=== PATIENT | female | born 1975 ===

== ENCOUNTER 2024-05-06 15:32 | Emergency (ER) | payer BC ==
--- OUTSIDE RECORDS SUMMARY | 2024-05-06 15:36 | XMS REPORT | Clinical Summary ---
Author Name Unknown Organization [facility] Address [address] [place] [address] Care Team Providers Care Self Sealing Fuel Tank Builder Name Role Phone Patrica Rea MD Unavailable Patrica Rea MD Unavailable China Padilla MD Primary Care Provider [phone] Cate Tipton MD Unavailable Ruba Dias MD Unavailable [phone] Allergies Active Allergy Reactions Criticality Noted Date Comments Hydromorphone (Bulk) Nausea And Vomiting 2016 Hydromorphone-Guaifenesin 09/17/2016 Penicillins Anaphylaxis High 05/01/2016 Medications Medication Sig Dispensed Refills Start Date End Date Status BABY ASPIRIN ORAL Take 81 mg by mouth daily. Active ibuprofen (ADVIL,MOTRIN) 200 mg tablet Take 1 tablet (200 mg) by mouth every 6 (six) hours as needed for moderate pain (pain score 4-6). Reported on 12/06/2016 Active acetaminophen (TYLENOL) 500 mg tablet Take 2 tablets (1,000 mg) by mouth every 6 (six) hours as needed for mild pain (pain score 1-3). Reported on 01/10/2017 Active PARAGARD T 380A 380 square mm IUD intrauterine device 7 Active progesterone (PROMETRIUM) 200 MG capsule Take 1 capsule (200 mg) by mouth at bedtime. 2 Active UNABLE TO FIND Take 1 Dose by mouth daily. Med Name: Beta alanine Active traZODone (DESYREL) 50 mg tablet Take 1 tablet (50 mg) by mouth nightly as needed. 3 Active POTASSIUM ORAL Take 500 mg by mouth daily. Active multivitamin tab tablet Take 1 tablet by mouth daily. Active dexlansoprazole (DEXILANT) 60 mg capsule Take 1 capsule (60 mg) by mouth every morning before breakfast. Active Wegovy 2.4 mg/0.75 mL pnij 3 Active peginterferon elliot-2a (Pegasys) 180 mcg/mL injectionIndication s:Essential hemorrhagic thrombocythemia Inject 0.25 mL (45 mcg) under the skin every 7 days. 4 mL 11 4 Active Vyvanse 20 mg capsule Take 2 capsules (40 mg) by mouth every morning. 4 Active telmisartan (MICARDIS) 80 mg tablet Take 1 tablet (80 mg) by mouth daily. 8 023 Discontinued coenzyme Q10 100 mg capsule Take 200 mg by mouth daily. 024 Discontinued calcium-vitamin D 250-100 mg-unit per tablet Take 1 tablet by mouth daily. 024 Discontinued methylphenidate HCl (Ritalin) 5 mg tabletIndications:O ther fatigue,Essential hemorrhagic thrombocythemia Take 2 tabs (total 10 mg) by mouth three times daily. 180 tablet 0 023 Discontinued magnesium 250 mg tab Take 1,000 mg by mouth daily. 024 Discontinued allopurinol (ZYLOPRIM) 300 mg tabletIndications:H yperuricemia Take 1 tablet (300 mg) by mouth daily. 90 tablet 3 2 023 Discontinued Saxenda 3 mg/0.5 mL (18 mg/3 mL) pnij Inject 0.6 mg under the skin once a week. 2 023 Discontinued nebivolol (BYSTOLIC) 10 mg tablet Take 1 tablet (10 mg) by mouth daily. 2 024 Discontinued pen needle, diabetic (BD Ultra-Fine Short Pen Needle) 31 gauge x 5/16" ndleIndications:Ess ential hemorrhagic thrombocythemia To be used with Pegasys injections every other week. 50 each 1 2 023 Discontinued peginterferon elliot-2a (Pegasys) 180 mcg/mL injectionIndication s:Essential thrombocytosis Inject 0.5 mL (90 mcg) under the skin every 14 (fourteen) days. 2 mL 11 2 024 Discontinued hydrALAZINE (APRESOLINE) 25 mg tablet Take 1 tablet (25 mg) by mouth twice daily. 3 023 Discontinued hydroCHLOROthiazide (HYDRODIURIL) 25 mg tablet Take 1 tablet (25 mg) by mouth every other day. 2 023 Discontinued omeprazole (PriLOSEC) 40 MG capsule Take 1 capsule (40 mg) by mouth daily. 3 023 Discontinued ondansetron (ZOFRAN-ODT) 4 mg disintegrating tablet Dissolve 1 tablet (4 mg) on the tongue every 8 (eight) hours as needed for nausea and vomiting. 3 023 Discontinued cholecalciferol, vitamin D3, (VITAMIN D3) 10,000 units tab tablet Take 400 Units by mouth daily. 024 Discontinued telmisartan-hydroch lorothiazide (MICARDIS HCT) 80-25 mg per tablet Take 1 tablet by mouth daily. 024 Discontinued peginterferon elliot-2a (Pegasys) 180 mcg/mL injectionIndication s:Essential hemorrhagic thrombocythemia Inject 0.5 mL (90 mcg) under the skin every 14 (fourteen) days. 2 mL 11 3 024 Discontinued(Re order) Active Problems Problem Noted Date Diagnosed Date Encounter for antineoplastic chemotherapy 2022 Hypertension 01/22/2023 Hyperuricemia 09/21/2020 Essential thrombocytosis 07/10/2016 Leukocytosis 07/10/2016 Other fatigue 07/10/2016 Encounters Date Type Department Care Team Description 05/01/2024 9:00 AM CDT - 05/01/2024 11:59 PM CDT Hospital Encounter [facility] [address] [place] [address], [place] [address] Juju Valladares APRN Essential hemorrhagic thrombocythemia Discharge Disposition: Home 04/16/2024 Documentation Leukemia Center [address] [facility], 8th [place] [address] Rosibel Dodson RN 04/14/2024 Documentation Breast Imaging [address] [facility], 5th [place] [address] Stu Hernandez RT 04/07/2024 Orders Only Leukemia Center [address] [place] [address], 8th [place] [address] Juju Valladares APRN Essential hemorrhagic thrombocythemia (Primary Dx) 03/30/2024 4:14 PM CDT - 03/30/2024 11:59 PM CDT Hospital Encounter Blood Donor [facility] [address] [place] [address], 2nd [place] [address] China Padilla MD Essential thrombocytosis (Primary Dx) Discharge Disposition: Home 03/30/2024 Travel 03/26/2024 3:00 PM CDT Follow-Up Leukemia Center [address] [place] [address], 8th [place] [address] China Padilla MD Essential hemorrhagic thrombocythemia (Primary Dx); Encounter for antineoplastic chemotherapy; Other fatigue; Essential thrombocytosis; Hypertension 03/26/2024 1:45 PM CDT - 03/26/2024 11:59 PM CDT Hospital Encounter [facility] [address] [place] [address], [place] [address] Diana Estrada APRN Hypertension (Primary Dx); Essential hemorrhagic thrombocythemia; Myalgia, other site; Encounter for antineoplastic chemotherapy; Hyperuricemia; Other fatigue; Essential thrombocytosis Discharge Disposition: Home 03/26/2024 Travel 02/03/2024 Orders Only Leukemia Center [address] [place] [address], 8th [place] [address] Diana Estrada APRN Essential hemorrhagic thrombocythemia (Primary Dx) 01/22/2024 Orders Only Leukemia Center [address] [place] [address] Main [facility], 8th [place] [address] Diana Estrada APRN Myalgia, other site (Primary Dx) 09/20/2023 Orders Only Leukemia Center [address] [place] [address] Main dg, 8th [place] [address] Diana Estrada APRN Essential hemorrhagic thrombocythemia 08/13/2023 9:40 AM CORPORATE OPERATIONS COMPLIANCE MANAGER Follow-Up Leukemia Center [address] [place] [address] Main dg, 8th [place] [address] China Padilla MD Essential hemorrhagic thrombocythemia (Primary Dx); Essential thrombocytosis; Hypertension; Other fatigue; Encounter for antineoplastic chemotherapy; Hyperuricemia 08/13/2023 7:45 AM CORPORATE OPERATIONS COMPLIANCE MANAGER - 08/13/2023 11:59 PM CORPORATE OPERATIONS COMPLIANCE MANAGER Hospital Encounter Diagnostic [facility] [address] [place] [address] Main [facility], [place] [address] Ramin Wright PA Essential hemorrhagic thrombocythemia; Other fatigue Discharge Disposition: Home 08/13/2023 Travel 08/09/2023 Orders Only Leukemia Center [address] [place] [address] Main dg, 8th [place] [address] Diana Estrada APRN Other fatigue (Primary Dx) after 05/07/2023 Surgical History Surgery Date Site/Laterality Comments STOMACH SURGERY February 2015 gastric sleeve CHOLECYSTECTOMY 1998 UPPER GASTROINTESTINAL ENDOSCOPY 2014 APPENDECTOMY INCISION AND DRAINAGE, PELVI S OR HIP JOINT AREA; DEEP ABSCESS OR HEMATOMA HERNIA REPAIR GASTROPLASTY DUODENAL SWITCH AUGMENTATION MAMMAPLASTY W/P ROSTHETIC IMPLANT Both breast Medical History Medical History Date Comments Hypertension 2009 - 2014 duri ng obesity Other heart disorder in dise ases classified elsewhere several TIAs [id number] due t o thrombocythemia Hearing loss 2015 runs on my dad's side of the family Nodule in breast 2014 2 spots r breas t, no change in current mammogram- possible lipoma has had one removed in the past Pneumonia 2011 - 2012 Gallstone 1998 - removed g allbladder Renal stone 1993, 2003, 2013 -current Urinary tract infection current possible bladder infection Presence of intrauterine contraceptive device IUD 2003 - current Immune disease 1998 Essential Thromb ocythemia Osteoporosis is a future conc georgiana Fracture foot Sep 2014 Other (abnormal) findings on radiological examination of breast Curious about liped gavin due to leg shape. Cyst of parathyroid 2014 possible debora or Chronic fatigue syndrome 07/10/2016 Family History Medical History Relation Name Comments Acute myelogenous leukemia Daughter 1 Heaven Bell Hypertension Father Amish Wu Stroke Father Amish Wu stroke 2013 Mesothelioma Maternal Grandfather Raj Sommers Prostate cancer Maternal Grandfather Raj Sommers low grade Skin cancer Maternal Grandmother BCC or SCC Pancreatic cancer Maternal Uncle 1 Zoltan Sommers Prostate cancer Maternal Uncle 1 Zoltan Sommers Lung cancer Maternal Uncle 2 Neftaly Sommers Printing pr ess exposure Diabetes Mother Mulugeta Wu passed 2009 Hypertension Mother Mulugeta Wu Stroke Mother Mulugeta Wu massive stroke 2005, passed 2009 Leukemia Paternal Cousin 2 dx 1969's Leukemia Paternal Grandmother Kathleen Wu Lymphoma Paternal Grandmother Kathleen Wu NHL -Unknown cancer Paternal Uncle Diabetes type I Sister Tereza Ewing Relation Name Status Comments Daughter 1 Heaven Bell Alive Daughter 2 Keely Alive A&W Father Amish Wu (Age 70) No history of cancer Grandchild n=3 Alive Half-Sister Alive ? Maternal Cousin 1 n=1 Alive No history of cancer Maternal Cousin 2 n=4 Alive No history of cancer Maternal Grandfather Raj Sommers (Age 94) d: fall Maternal Grandmother Alive Maternal Uncle 1 Zoltan Sommers (Age 55-60) Maternal Uncle 2 eNftaly Sommers (Age 53) Mother Mulugeta Wu (Age 60) No history of cancer Niece/Nephew n=2 Alive No history of c ancer Other n=2 Alive half siblings t o affected cousin Paternal Aunt Pat Alive No history of cancer Paternal Cousin 1 n=2 Alive No history of cancer Paternal Cousin 2 (Age 6) Paternal Cousin 3 Alive A&W Paternal Grandfather ? Paternal Grandmother Kathleen Wu (Age 75) Paternal Uncle Alive Sister Tereza Ewing Alive No history of c ancer Social History Tobacco Use Types Packs/Day Years Used Date Smoking Tobacco: Former Cigarettes 0.1 4 0 10/24/1989 - 10/24/1993 Smokeless Tobacco: Never Alcohol Use Standard Drinks/Week Comments Yes 1 (1 standard drink = 0.6 oz pur e alcohol) Sex and Gender Information Value Date Recorded Sex Assigned at Not on file Gender Identity Not on file Sexual Orientation Not on file Job Start Date Occupation Industry Not on file Not on file Not on file Obstetrics History Para Term AB IAB SAB Ectopic Multiple Livin g Live Births 2 2 2 Date Outcome GA Total Labor Labor/2nd/3rd Weight Sex Type Anes PTL Sharmila A1 A5 Name Clin Term Term Last Filed Vital Signs Vital Sign Reading Time Taken Comments Blood Pressure 159/71 03/26/2024 2:28 PM CDT Pulse 111 03/26/2024 2:28 PM CDT Temperature 36.4 C (97.5 F) 03/26/2024 2:28 PM CD T Respiratory Rate 18 03/26/2024 2:28 PM CDT Oxygen Saturation 100% 03/26/2024 2:28 PM CDT Inhaled Oxygen Concentration - - Weight 54.7 kg (120 lb 9.5 oz) 03/26/2024 2:28 P M CDT Height 158.7 cm (5' 2.48") 03/26/2024 2:28 PM CD T Body Mass Index 21.72 03/26/2024 2:28 PM CDT Plan of Treatment Upcoming Encounters Date Type Department Care Team (Late st Contact Info) Description 05/22/2024 2:30 PM CDT Appointment Breast Imaging [address] [facility], 5th [place] [address] China Padilla MD [address] [place] [phone] [email or web address] 06/25/2024 3:00 PM CDT Appointment Diagnostic Laboratory Center [address] [place] [address], [place] [address] Diana Estrada APRN [address] [place] [phone] [email or web address] 06/25/2024 4:20 PM CDT Follow-Up Leukemia Center [address] [place] [address], 8th [place] [address] China Padilla MD [facility] [place] [address] [email or web address] Maintenance Due Date Last Done Comments COVID-19 Vaccine (#1) 1979 Influenza Vaccine (#1) 2024 Pneumococcal Vaccine: Pediat rics (0 to 5 Years) and At-Risk Patients (6 to 64 Years) Aged Out No longer eligi ble based on patient's age to complete this topic Procedures Procedure Name Priority Date/Time Associated Diagnosis Comments .CBC Routine 05/01/2024 3:17 PM CDT Essential hemorrhagic thrombocythemia MAGNESIUM LEVEL Routine 05/01/2024 3:17 PM CDT Essential hemorrhagic thrombocythemia ELECTROLYTE PANEL Routine 05/01/2024 3:1 7 PM CDT Essential hemorrhagic thrombocythemia ALANINE AMINOTRANSFERASE Routine 05/01/2024 3:17 PM CDT Essential hemorrhagic thrombocythemia LACTATE DEHYDROGENASE Routine 05/01/2024 3:17 PM CDT Essential hemorrhagic thrombocythemia ALKALINE PHOSPHATASE Routine 05/01/2024 3:17 PM CDT Essential hemorrhagic thrombocythemia FRACTIONATED BILIRUBIN Routine 3:17 PM CDT Essential hemorrhagic thrombocythemia URIC ACID Routine 05/01/2024 3:17 PM CDT Essential hemorrhagic thrombocythemia CREATININE Routine 05/01/2024 3:17 PM CDT Essential hemorrhagic thrombocythemia BLOOD UREA NITROGEN Routine 05/01/2024 3 :17 PM CDT Essential hemorrhagic thrombocythemia GLUCOSE, RANDOM Routine 05/01/2024 3:17 PM CDT Essential hemorrhagic thrombocythemia PHOSPHORUS LEVEL Routine 05/01/2024 3:17 PM CDT Essential hemorrhagic thrombocythemia CALCIUM LEVEL Routine 05/01/2024 3:17 PM CDT Essential hemorrhagic thrombocythemia ALBUMIN LEVEL Routine 05/01/2024 3:17 PM CDT Essential hemorrhagic thrombocythemia TOTAL PROTEIN Routine 05/01/2024 3:17 PM CDT Essential hemorrhagic thrombocythemia COMPLETE BLOOD COUNT W/ DIFFERENTIAL Routine 05/01/2024 3:17 PM CDT Essential hemorrhagic thrombocythemia TYPE AND SCREEN Routine 05/01/2024 3:17 PM CDT Essential hemorrhagic thrombocythemia TMP INTERPRETATION THERAPEUTIC PHLEBOTOMY Routine 03/30/2024 5:24 PM CDT Essential thrombocytosis MANISTEE MISC TEST Routine 03/26/2024 2:15 PM CDT Essential hemorrhagic thrombocythemia Myalgia, other site Hypertension Encounter for antineoplastic chemotherapy Hyperuricemia Other fatigue Essential thrombocytosis .CBC Routine 03/26/2024 2:15 PM CDT Essential hemorrhagic thrombocythemia RESEARCH PROTOCOL [id number] Routine 03/26/2024 2:15 PM CDT Essential hemorrhagic thrombocythemia C3 COMPLEMENT Routine 03/26/2024 2:15 PM CDT Myalgia, other site C4 COMPLEMENT Routine 03/26/2024 2:15 PM CDT Myalgia, other site SEDIMENTATION RATE NON-AUTOMATED Routine 03/26/2024 2:15 PM CDT Myalgia, other site C REACTIVE PROTEIN Routine 03/26/2024 2: 15 PM CDT Myalgia, other site COMPLETE BLOOD COUNT W/ DIFFERENTIAL Routine 03/26/2024 2:15 PM CDT Essential hemorrhagic thrombocythemia TYPE AND SCREEN Routine 03/26/2024 2:15 PM CDT Essential hemorrhagic thrombocythemia ASPARTATE AMINOTRANSFERASE Routine 03/26/2024 2:15 PM CDT Essential hemorrhagic thrombocythemia ELECTROLYTE PANEL Routine 03/26/2024 2:1 5 PM CDT Essential hemorrhagic thrombocythemia ALANINE AMINOTRANSFERASE Routine 03/26/2024 2:15 PM CDT Essential hemorrhagic thrombocythemia LACTATE DEHYDROGENASE Routine 03/26/2024 2:15 PM CDT Essential hemorrhagic thrombocythemia ALKALINE PHOSPHATASE Routine 03/26/2024 2:15 PM CDT Essential hemorrhagic thrombocythemia FRACTIONATED BILIRUBIN Routine 2:15 PM CDT Essential hemorrhagic thrombocythemia URIC ACID Routine 03/26/2024 2:15 PM CDT Essential hemorrhagic thrombocythemia CREATININE Routine 03/26/2024 2:15 PM CDT Essential hemorrhagic thrombocythemia BLOOD UREA NITROGEN Routine 03/26/2024 2 :15 PM CDT Essential hemorrhagic thrombocythemia ALBUMIN LEVEL Routine 03/26/2024 2:15 PM CDT Essential hemorrhagic thrombocythemia TOTAL PROTEIN Routine 03/26/2024 2:15 PM CDT Essential hemorrhagic thrombocythemia HISTORICAL ABORH Routine 08/13/2023 4:57 PM CORPORATE OPERATIONS COMPLIANCE MANAGER Essential hemorrhagic thrombocythemia .CBC Routine 08/13/2023 3:25 PM CORPORATE OPERATIONS COMPLIANCE MANAGER Essential hemorrhagic thrombocythemia VITAMIN B12 LEVEL Routine 08/13/2023 3:2 5 PM CORPORATE OPERATIONS COMPLIANCE MANAGER Other fatigue COMPLETE BLOOD COUNT W/ DIFFERENTIAL Routine 08/13/2023 3:25 PM CORPORATE OPERATIONS COMPLIANCE MANAGER Essential hemorrhagic thrombocythemia TYPE AND SCREEN Routine 08/13/2023 3:25 PM CORPORATE OPERATIONS COMPLIANCE MANAGER Essential hemorrhagic thrombocythemia ASPARTATE AMINOTRANSFERASE Routine 08/13/2023 3:25 PM CORPORATE OPERATIONS COMPLIANCE MANAGER Essential hemorrhagic thrombocythemia ELECTROLYTE PANEL Routine 08/13/2023 3:2 5 PM CORPORATE OPERATIONS COMPLIANCE MANAGER Essential hemorrhagic thrombocythemia ALANINE AMINOTRANSFERASE Routine 08/13/2023 3:25 PM CORPORATE OPERATIONS COMPLIANCE MANAGER Essential hemorrhagic thrombocythemia LACTATE DEHYDROGENASE Routine 08/13/2023 3:25 PM CORPORATE OPERATIONS COMPLIANCE MANAGER Essential hemorrhagic thrombocythemia ALKALINE PHOSPHATASE Routine 08/13/2023 3:25 PM CORPORATE OPERATIONS COMPLIANCE MANAGER Essential hemorrhagic thrombocythemia FRACTIONATED BILIRUBIN Routine 3:25 PM CORPORATE OPERATIONS COMPLIANCE MANAGER Essential hemorrhagic thrombocythemia URIC ACID Routine 08/13/2023 3:25 PM CORPORATE OPERATIONS COMPLIANCE MANAGER Essential hemorrhagic thrombocythemia CREATININE Routine 08/13/2023 3:25 PM CORPORATE OPERATIONS COMPLIANCE MANAGER Essential hemorrhagic thrombocythemia BLOOD UREA NITROGEN Routine 08/13/2023 3 :25 PM CORPORATE OPERATIONS COMPLIANCE MANAGER Essential hemorrhagic thrombocythemia ALBUMIN LEVEL Routine 08/13/2023 3:25 PM CORPORATE OPERATIONS COMPLIANCE MANAGER Essential hemorrhagic thrombocythemia TOTAL PROTEIN Routine 08/13/2023 3:25 PM CORPORATE OPERATIONS COMPLIANCE MANAGER Essential hemorrhagic thrombocythemia after 05/07/2023 Results * Glucose, Random (05/01/2024 3:17 PM CDT) Glucose Random 91 70 - 199 mg/dL 05/01/2024 4:15 PM CDT [facility] Blood Peripheral blood specimen / Unknown Venipuncture / Unknown 05/01/2024 3:17 PM CDT 05/01/2024 3:18 PM CDT Narrative [facility] - 05/01/2024 4:15 PM CDT Effective 03/21/16, the glucose reference intervals have been updated based on [place] [employer] guidelines (Standards of Medical Care in Diabetes 2016. Diabetes Care 2016; 39: S13-S22). Fasting blood glucose: Normal: 70-99 mg/dL Impaired fasting glucose (increased risk for diabetes or pre-diabetes): 100-125 mg/dL Diabetes mellitus: >/=126 mg/dL Random blood glucose: Normal: 70-199 mg/dL Note: Random glucose >100 mg/dL is associated with increased risk for diabetes Juju Valladares APRN LAB BLOOD ORDER TOD [facility] Unless otherwise noted, all lab tests performed by: Division of Pathology and Laboratory Medicine [address] [place] [id number] * .CBC (05/01/2024 3:17 PM CDT) Only the most recent of3 resultswithin the time period is included. White Blood Cell 5.5 4.1 - 10.5 K/uL 05/01/2024 3:46 PM CDT [facility] Red Blood Cell 4.41 3.99 - 5.46 M/uL 05/01/2024 3:46 PM CDT [facility] Hemoglobin 13.1 12.2 - 15.3 g/dL 05/01/2024 3:46 PM CDT [facility] Hematocrit 40.7 36.4 - 46.8 % 05/01/2024 3:46 PM CDT [facility] Mean Cell Volume 92 82 - 99 fL 05/01/20 24 3:46 PM CDT [facility] Mean Cell Hemoglobin 29.7 26.6 - 33.2 pg 05/01/2024 3:46 PM CDT [facility] Mean Cell Hemoglobin Concentration 32.2 31.1 - 35.2 g/dL 05/01/2024 3:46 PM CDT [facility] RDW-SD 48.6 37.5 - 49.7 fL 05/01/2024 3:46 PM CDT [facility] Red Cell Diameter Width 14.4 11.6 - 15.5 % 05/01/2024 3:46 PM CDT [facility] Platelet 373 160 - 397 K/uL 05/01/2024 3:46 PM CDT [facility] Mean Platelet Volume 11.9 9.1 - 12.6 fL 05/01/2024 3:46 PM CDT [facility] INRBC 0.0 0.0 - 0.1 /100 WBC 05/01/2024 3:46 PM CDT [facility] Comment: The INRBC (instrument NRBC) value reflects the enumeration of nucleated red blood cells contained in a 200uL sample of whole blood analyzed by the instrument. This value may differ from the NRBC value reported in a manual differential, which is based on a 100 cell differential. Neutrophil % 43.6 43.2 - 72.7 % 05/01/2024 3:46 PM CDT [facility] Lymphocyte % 42.6 16.8 - 46.2 % 05/01/2024 3:46 PM CDT [facility] Monocyte % 10.6 5.1 - 12.5 % 05/01/2024 3:46 PM CDT [facility] Eosinophil % 1.5 0.4 - 6.3 % 05/01/2024 3:46 PM CDT [facility] Basophil % 1.3 0.2 - 1.4 % 05/01/2024 3:46 PM CDT [facility] IGRE % 0.4 0.1 - 1.5 % 05/01/2024 3:46 PM CDT [facility] Comment:The IGRE% includes M etamyelocytes, Myelocytes and Promyelocytes. Neutrophil Abs 2.39 1.95 - 7.25 K/uL 05/01/2024 3:46 PM CDT [facility] Lymphocyte Abs 2.33 1.01 - 3.24 K/uL 05/01/2024 3:46 PM CDT [facility] Monocyte Abs 0.58 0.24 - 0.85 K/uL 05/01/2024 3:46 PM CDT [facility] Eosinophil Abs 0.08 0.02 - 0.50 K/uL 05/01/2024 3:46 PM CDT [facility] Basophil Abs 0.07 0.02 - 0.09 K/uL 05/01/2024 3:46 PM CDT [facility] IG Abs 0.02 0.01 - 0.12 K/uL 05/01/2024 3:46 PM CDT [facility] Blood Peripheral blood specimen / Unknown Venipuncture / Unknown 05/01/2024 3:17 PM CDT 05/01/2024 3:18 PM CDT Juju Valladares APRN LAB BLOOD ORDER TOD [facility] Unless otherwise noted, all lab tests performed by: Division of Pathology and Laboratory Medicine [address] [place] [id number] * Fractionated Bilirubin (05/01/2024 3:17 PM CDT) Only the most recent of3 resultswithin the time period is included. Bilirubin Direct 05/01/20 4:15 PM CDT [facility] Comment: Direct and indirect bilirubin will not be reported when Total bilirubin result is <0.3 mg/dL Indocyanine Green (ICG) may cause falsely elevated bilirubin results. Total and direct bilirubin must not be measured from samples containing indocyanine green. Bilirubin Indirect 2023 4:15 PM CDT [facility] Comment:Direct and indirect bilirubin will not be reported when Total bilirubin result is <0.3 mg/dL Bilirubin Total <0.3 0.0 - 1.2 mg/dL 05/01/2024 4:15 PM CDT [facility] Comment: Direct and indirect bilirubin will not be reported when Total bilirubin result is <0.3 mg/dL Indocyanine Green (ICG) may cause falsely elevated bilirubin results. Total and direct bilirubin must not be measured from samples containing indocyanine green. False elevation of total bilirubin can be seen in patients with IgG concentrations above 28 g/L. Blood Peripheral blood specimen / Unknown Venipuncture / Unknown 05/01/2024 3:17 PM CDT 05/01/2024 3:18 PM CDT Juju Valladares APRN LAB BLOOD ORDER TOD [facility] Unless otherwise noted, all lab tests performed by: Division of Pathology and Laboratory Medicine [address] [place] [id number] * Type and Screen (05/01/2024 3:17 PM CDT) Only the most recent of3 resultswithin the time period is included. ABORh O NEG 05/01/2024 3:11 PM CDT [facility] ABSC Negative 05/01/2024 3:11 PM CDT [facility] Clot Expiration 05/04/2024 23:59 05/01/2024 3:11 PM CDT [facility] Historical Record Check Complete 05/01/2024 3:11 PM CDT [facility] Blood Peripheral blood specimen / Unknown Venipuncture / Unknown 05/01/2024 3:17 PM CDT 05/01/2024 3:18 PM CDT Juju Valladares APRN BLOOD BANK TEST ORDERABLES Performing Organization Address City/[facility]/ZIP Co de Phone Number [facility] Trans[facility] Services [address] [place] [address] [address] [place] [address] * Uric Acid (05/01/2024 3:17 PM CDT) Only the most recent of3 resultswithin the time period is included. Uric Acid 5.4 2.4 - 5.7 mg/dL 05/01/2024 4:15 PM CDT [facility] Blood Peripheral blood specimen / Unknown Venipuncture / Unknown 05/01/2024 3:17 PM CDT 05/01/2024 3:18 PM CDT Juju Valladares APRN LAB BLOOD ORDER TOD [facility] Unless otherwise noted, all lab tests performed by: Division of Pathology and Laboratory Medicine [address] [place] [phone] * BUN (05/01/2024 3:17 PM CDT) Only the most recent of3 resultswithin the time period is included. BUN 16 6 - 23 mg/dL 05/01/2024 4:15 PM CDT [facility] Blood Peripheral blood specimen / Unknown Venipuncture / Unknown 05/01/2024 3:17 PM CDT 05/01/2024 3:18 PM CDT Juju Valladares APRN LAB BLOOD ORDER TOD Performing Organization Address City/[facility]/ZIP Co de Phone Number [facility] Unless otherwise noted, all lab tests performed by: Division of Pathology and Laboratory Medicine [address] [place] [phone] * Alanine Aminotransferase (05/01/2024 3:17 PM CDT) Only the most recent of3 resultswithin the time period is included. ALT 17 <=33 U/L 05/01/2024 4:1 5 PM CDT [facility] Blood Peripheral blood specimen / Unknown Venipuncture / Unknown 05/01/2024 3:17 PM CDT 05/01/2024 3:18 PM CDT Juju Valladares APRN LAB BLOOD ORDER TOD Performing Organization Address City/[facility]/ZIP Co de Phone Number [facility] Unless otherwise noted, all lab tests performed by: Division of Pathology and Laboratory Medicine [address] [place] [phone] * Total Protein (05/01/2024 3:17 PM CDT) Only the most recent of3 resultswithin the time period is included. Tot Protein 7.2 6.4 - 8.3 gm/dL 05/01/2024 4:15 PM CDT [facility] Blood Peripheral blood specimen / Unknown Venipuncture / Unknown 05/01/2024 3:17 PM CDT 05/01/2024 3:18 PM CDT Narrative [facility] - 05/01/2024 4:15 PM CDT Reference range established based on adult population Juju Valladares APRN LAB BLOOD ORDER TOD [facility] Unless otherwise noted, all lab tests performed by: Division of Pathology and Laboratory Medicine [address] [place] [phone] * Phosphorus Level (05/01/2024 3:17 PM CDT) Phosphorus Level 4.1 2.5 - 4.5 mg/dL 05/01/2024 4:15 PM CDT [facility] Blood Peripheral blood specimen / Unknown Venipuncture / Unknown 05/01/2024 3:17 PM CDT 05/01/2024 3:18 PM CDT Juju Valladares APRN LAB BLOOD ORDER TOD Performing Organization Address City/[facility]/ZIP Co de Phone Number [facility] Unless otherwise noted, all lab tests performed by: Division of Pathology and Laboratory Medicine [address] [place] [phone] * Alkaline Phosphatase (05/01/2024 3:17 PM CDT) Only the most recent of3 resultswithin the time period is included. Alkaline Phosphatase 96 35 - 104 U/L 05/01/2024 4:15 PM CDT [facility] Blood Peripheral blood specimen / Unknown Venipuncture / Unknown 05/01/2024 3:17 PM CDT 05/01/2024 3:18 PM CDT Juju Valladares APRN LAB BLOOD ORDER TOD [facility] Unless otherwise noted, all lab tests performed by: Division of Pathology and Laboratory Medicine [address] [place] [phone] * Magnesium Level (05/01/2024 3:17 PM CDT) Magnesium Level 1.9 1.6 - 2.6 mg/dL 05/01/2024 4:15 PM CDT [facility] Blood Peripheral blood specimen / Unknown Venipuncture / Unknown 05/01/2024 3:17 PM CDT 05/01/2024 3:18 PM CDT Juju Valladares APRN LAB BLOOD ORDER TOD [facility] Unless otherwise noted, all lab tests performed by: Division of Pathology and Laboratory Medicine [address] [place] [phone] * LDH (05/01/2024 3:17 PM CDT) Only the most recent of3 resultswithin the time period is included. Pathologist [facility] LDH 136 135 - 214 U/L 05/01/2024 4:13 PM CDT [facility] Blood Peripheral blood specimen / Unknown Venipuncture / Unknown 05/01/2024 3:17 PM CDT 05/01/2024 3:18 PM CDT Narrative [facility] - 05/01/2024 4:13 PM CDT Results greater than 1651 U/L may not be reliable due to matrix effect with extended dilution as it exceeds the tire center supervisor's recommended limit. Caution should be exercised when interpreting such values and done in conjunction with clinical context. Juju Valladares APRN LAB BLOOD ORDER TOD [facility] Unless otherwise noted, all lab tests performed by: Division of Pathology and Laboratory Medicine [address] [place] [phone] * Creatinine (05/01/2024 3:17 PM CDT) Only the most recent of3 resultswithin the time period is included. Pathologist [facility] Creatinine 0.69 0.51 - 0.95 mg/dL 05/01/2024 4:15 PM CDT [facility] eGFR 106 >=60 mL/min/1.7 3 sq. m 05/01/2024 4:15 PM CDT [facility] Comment: The eGFRcr is calculated with the 2020 CKD-EPI creatinine equation using creatinine, patient's age, and sex for adults 18 years of age and older. Other factors, especially muscle mass, may affect accuracy and need to be considered. According to the Kidney Disease: Improving Global Outcomes (KDIGO) CKD Work Group 2012 Clinical Practice Guideline, chronic kidney disease (CKD) is defined as the abnormalities of kidney structure or function, present for more than 3 months, with implications for health. CKD should be classified by cause, GFR category, and albuminuria category. KDIGO guidelines provide the following GFR categories. Stage / Description / GFR mL/min/1.73 m2: G1* / Normal or high / >= 90 G2* / Mildly decreased / 60-89 G3a / Mildly to moderately decreased / 45-59 G3b / Moderately to severely decreased / 30-44 G4 / Severely decreased / 15-29 G5 / Kidney failure / <15 *In the absence of evidence of kidney damage, neither G1 nor G2 fulfill criteria for CKD. Blood Peripheral blood specimen / Unknown Venipuncture / Unknown 05/01/2024 3:17 PM CDT 05/01/2024 3:18 PM CDT Juju Valladares APRN LAB BLOOD ORDER TOD [facility] Unless otherwise noted, all lab tests performed by: Division of Pathology and Laboratory Medicine [address] [place] [phone] * Calcium Level (05/01/2024 3:17 PM CDT) Calcium Level Total 9.3 8.2 - 10.2 mg/dL 05/01/2024 4:15 PM CDT [facility] Blood Peripheral blood specimen / Unknown Venipuncture / Unknown 05/01/2024 3:17 PM CDT 05/01/2024 3:18 PM CDT Juju Valladares APRN LAB BLOOD ORDER TOD [facility] Unless otherwise noted, all lab tests performed by: Division of Pathology and Laboratory Medicine [address] [place] [phone] * Albumin Level (05/01/2024 3:17 PM CDT) Only the most recent of3 resultswithin the time period is included. Albumin Level 3.9 3.5 - 5.2 gm/dL 05/01/2024 4:15 PM CDT [facility] Blood Peripheral blood specimen / Unknown Venipuncture / Unknown 05/01/2024 3:17 PM CDT 05/01/2024 3:18 PM CDT Juju Valladares APRN LAB BLOOD ORDER TOD [facility] Unless otherwise noted, all lab tests performed by: Division of Pathology and Laboratory Medicine [address] [place] [phone] * Electrolyte Panel (05/01/2024 3:17 PM CDT) Only the most recent of3 resultswithin the time period is included. Sodium Level 139 136 - 145 mmol/L 05/01/2024 4:15 PM CDT [facility] Potassium Level 4.3 3.4 - 4.5 mmol/L 05/01/2024 4:15 PM CDT [facility] Chloride 103 98 - 107 mmol/L 05/01/2024 4:15 PM CDT [facility] CO2 26 22 - 29 mmol/L 05/01/2024 4:15 PM CDT [facility] Anion Gap 10 4 - 14 mmol/L 05/01/2024 4:15 PM CDT [facility] Blood Peripheral blood specimen / Unknown Venipuncture / Unknown 05/01/2024 3:17 PM CDT 05/01/2024 3:18 PM CDT Juju Valladares APRN LAB BLOOD ORDER TOD [facility] Unless otherwise noted, all lab tests performed by: Division of Pathology and Laboratory Medicine [address] [place] [address] [id number] * TMP Interpretation Therapeutic Phlebotomy (03/30/2024 5:24 PM CDT) TMP Interpretation Therapeutic Phlebotomy 290 mL of whole blood therapeutically phlebotomized. 03/31/2024 10:48 AM CDT [facility] CP THERAPEUTIC UNIT NUMBER [id number] 03/31/2024 10:48 AM CDT [facility] TRANSFUSION [facility] CP THERAPEUTIC PHLEBOTOMY TYPE Whole Blood 03/31/2024 10:48 AM CDT [facility] TRANSF[facility] Signature . 03/31/2024 10:48 AM CDT [facility] Blood Peripheral blood specimen / Unknown Venipuncture / Unknown 03/30/2024 5:24 PM CDT 03/30/2024 5:24 PM CDT China Padilla MD BLOOD BANK TEST NIKOE EDUARDA [facility] Transfusion Services [address] [facility] [address] [place] [address] * [place] Misc Test (03/26/2024 2:15 PM CDT) [facility] Test Result See Footnote 03/27/2024 4:28 PM CDT [facility] Comment: Test Result Flag Unit RefValue dsDNA Ab, IgG, S <10 IU/mL 0 - 99 Interpretation: Negative (<100) Negative for anti-dsDNA IgG antibodies. Results do not rule out a diagnosis of systemic lupus erythematosus (SLE). Consider testing for anti-dsDNA IgG using Crithidia luciliae by indirect immunofluorescence, if clinically indicated. ADDITIONAL INFORMATION On 09/10/2023, [facility] implemented a new Double-Stranded DNA (dsDNA) Antibodies method. If patient was tested on previous method and is undergoing serial monitoring, rebaselining may be indicated. Rebaselining, or testing the current sample on the previous method, is available at no charge, subject to reagent availability. The rebaseline result will be added to this report. Contact [email or web address] at within 7 days of initial report issuance to request this service. For [facility] patients, call [phone]. Test Performed by: [facility] [address] [place] [address] Reducing System Operator: Nesha Julian Ph.D.; CLIA# [id number] Other (Other) 03/26/2024 2:1 5 PM CDT 03/26/2024 3:42 PM CDT Diana Estrada APRN LAB BLOOD ORDERABLES [facility] * Research Protocol [id number] (03/26/2024 2:15 PM CDT) [facility] Research Protocol Specimen Specimen Collected, Ready for Pickup. 03/26/2024 4:01 PM CDT [facility] Blood Venipuncture / Unknown 03/26/2024 2:15 PM CDT 03/26/2024 2:18 PM CDT Diana Estrada APRN RESEARCH LAB Z CODES [facility] Unless otherwise noted, all lab tests performed by: Division of Pathology and Laboratory Medicine [address] [place] [address] [phone] * Sed Rate (03/26/2024 2:15 PM CDT) Pathologist [facility] Sedimentation Rate 15 <=20 mm/hr 2023 3:28 PM CDT [facility] Blood Peripheral blood specimen / Unknown Venipuncture / Unknown 03/26/2024 2:15 PM CDT 03/26/2024 2:18 PM CDT Diana Estrada APRN LAB BLOOD ORDERABLES [facility] Unless otherwise noted, all lab tests performed by: Division of Pathology and Laboratory Medicine [address] [place] [address] [phone] * C3 Complement (03/26/2024 2:15 PM CDT) [facility] 94 75 - 175 mg/dL 03/27/2024 1:36 PM CDT [facility]YJ[facility] Comment: Test Performed by: [address] [address] Reducing System Operator: Nesha Julian Ph.D.; CLIA# [id number] Blood Peripheral blood specimen / Unknown Venipuncture / Unknown 03/26/2024 2:15 PM CDT 03/26/2024 2:18 PM CDT Diana Valdivian CERTIFIED MEDICAL DOSIMETRIST LAB BLOOD ORDERABLES Performing Organization Address [facility] Co de Phone Number [facility] * C4 Complement (03/26/2024 2:15 PM CDT) [facility] 28 14 - 40 mg/dL 03/27/2024 1:46 PM CDT [facility] Comment: Test Performed by: [address] [address] Reducing System Operator: Nesha Julian Ph.D.; CLIA# [id number] Blood Peripheral blood specimen / Unknown Venipuncture / Unknown 03/26/2024 2:15 PM CDT 03/26/2024 2:18 PM CDT Diana Estrada APRN LAB BLOOD ORDERABLES [facility] * CRP (03/26/2024 2:15 PM CDT) [facility] CRP (C Reactive Protein) 0.56 mg/L 03/26/2024 3:00 PM CDT [facility] Blood Peripheral blood specimen / Unknown Venipuncture / Unknown 03/26/2024 2:15 PM CDT 03/26/2024 2:18 PM CDT Narrative [facility] - 03/26/2024 3:00 PM CDT Adult Reference ranges for HS CRP assay are as follows: Reference ranges when used to assess cardiac risk: <1.00 mg/L Low cardiovascular risk 1.00-3.00 mg/L Average cardiovascular risk >3.00 mg/L High cardiovascular risk Reference ranges when used to assess inflammatory responses: Less than or equal to 10.00 mg/L. Diana Estrada APRN LAB BLOOD ORDERABLES [facility] Unless otherwise noted, all lab tests performed by: Division of Pathology and Laboratory Medicine [address] [place] [address] [id number] * Aspartate Aminotransferase (03/26/2024 2:15 PM CDT) Only the most recent of2 resultswithin the time period is included. Pathologist [facility] AST 19 <=32 U/L 03/26/2024 3:0 0 PM CDT [facility] Blood Peripheral blood specimen / Unknown Venipuncture / Unknown 03/26/2024 2:15 PM CDT 03/26/2024 2:18 PM CDT Diana Estrada APRN LAB BLOOD ORDERABLES [facility] Unless otherwise noted, all lab tests performed by: Division of Pathology and Laboratory Medicine [address] [place] [phone] * Historical ABORh (08/13/2023 4:57 PM CORPORATE OPERATIONS COMPLIANCE MANAGER) ABORh O NEG 08/13/2023 4:58 PM CORPORATE OPERATIONS COMPLIANCE MANAGER [facility] Blood Peripheral blood specimen / Unknown 08/13/2023 4:57 PM CORPORATE OPERATIONS COMPLIANCE MANAGER 08/13/2023 4:57 PM CORPORATE OPERATIONS COMPLIANCE MANAGER Ramin ORDONEZ BLOOD BANK TEST NKIOE EDUARDA [facility] Transfusion [facility] [address] [facility] [address] [place] [address] * (ABNORMAL) Vitamin B12 Level (08/13/2023 3:25 PM CORPORATE OPERATIONS COMPLIANCE MANAGER) Vitamin B12 Level 2,436(H) 232 - 1,245 pg/mL 08/13/2023 5:40 PM CORPORATE OPERATIONS COMPLIANCE MANAGER [facility] Comment:Reference range esta blished based on adult population Is patient fasting? No 08/13/2023 5:40 PM CORPORATE OPERATIONS COMPLIANCE MANAGER [facility] Comment:1 robert with radha se Blood Peripheral blood specimen / Unknown Venipuncture / Unknown 08/13/2023 3:25 PM CORPORATE OPERATIONS COMPLIANCE MANAGER 08/13/2023 3:45 PM CORPORATE OPERATIONS COMPLIANCE MANAGER Diana Estrada APRN LAB BLOOD ORDERABLES [facility] Unless otherwise noted, all lab tests performed by: Division of Pathology and Laboratory Medicine [address] [place] [id number] [place] [address] Unless otherwise noted, all lab tests performed by: Division of Pathology and Laboratory Medicine [address] [place] [address] [phone] after 05/07/2023 Additional Health Concerns Infection Onset Date Last Indicated Confirmed COVID-19 04/13/2024 04/16/2024 Care Teams 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 Consulting Physician Internal Medicine 02/01/20
[2024-05-06] MEDS ORDERED: FAMOTIDINE 20 MG/2 ML VIAL IV ONE (17:41)
[2024-05-06] MEDS ORDERED: NA CHLORIDE 0.9% 1,000 ML ONE (17:41)
[2024-05-06] MEDS ORDERED: ONDANSETRON 4 MG/2 ML VIAL ONE (17:41)
[2024-05-06 17:50] LABS: Absolute Monocytes 0.3 K/uL (0.1-1.3); Absolute Neutrophil 1.9 K/uL (1.8-8.0); Basophils % 0.9 % (0-1.3); Eosinophils % 0.7 % (0-4.4); Hematocrit 41.6 % (36.0-45.0); Hemoglobin 13.7 g/dL (12.0-15.0); Lymphocytes % 47.5 % (15.3-44.8); MCH 29.8 pg (27.0-35.0); MCHC 32.9 g/dL (32.0-36.0); MCV 90.5 fL (80-100); MPV 9.9 fL (7.6-11.3); Monocytes % 6.9 % (3.3-12.3); Nucleated Red Blood Cells % 0.1 % (0-0); Platelets 312 thou/uL (152-406); RBC Red Blood Cell Count 4.59 M/uL (3.86-4.86); Red Cell Distribution Width 14.9 % (12.1-15.2)
[2024-05-06 18:05] LABS: Specific Gravity 1.015 (1.005-1.030); Sqamous Epithelial None Seen /HPF (None Seen); Urine Bacteria <20 /HPF (<20); Urine Bilirubin NEGATIVE (Negative); Urine Blood Negative (Negative); Urine Clarity Extremely Turbid (Clear); Urine Color Light-Yellow (Yellow); Urine Crystals Unidentified Few /HPF (None Seen); Urine Culture Reflex Order NOT NEEDED; Urine Glucose NEGATIVE (Negative); Urine Ketones NEGATIVE (Negative); Urine Microscopic Reflex YN ORDER UMIC; Urine Mucus Slight /HPF (None Seen); Urine Nitrite NEGATIVE (Negative); Urine Protein NEGATIVE (Negative); Urine RBC <5 /HPF (None Seen); Urine Urobilinogen Normal (Normal); Urine WBC <5 /HPF (<5)
[2024-05-06 18:06] LABS: Specific Gravity 1.015 (1.005-1.030)
[2024-05-06 18:07] LABS: Albumin 3.4 g/dL (3.4-5.0); Albumin/Globulin Ratio 0.8 (1.1-1.8); Anion Gap 8.8 mEq/L (5.0-15.0); Bilirubin Total 0.5 mg/dL (0.2-1.0); Globulin 4.2 g/dL (2.3-3.5); Potassium 3.8 mEq/L (3.5-5.1); Protein, Total 7.6 g/dL (6.4-8.2)
--- NOTE | 2024-05-06 18:57 | RAD REPORT ---
EXAM DESCRIPTION: CT - Abdomen Pelvis W Contrast - 05/06/2024 6:30 pm CLINICAL HISTORY: Abdominal pain COMPARISON: Due to technical issues prior exams could not be reviewed TECHNIQUE: Computed axial tomography of the abdomen pelvis was obtained. 100 cc Isovue-300 was admin istered intravenously. Oral contrast was not requested which limits evaluation of bowel and appendix All CT scans are performed using dose optimization technique as appropriate and may include automated exposure control or mA/KV adjustment according to patient size. FINDINGS: Cholecystectomy Postsurgical changes involve stomach Tiny bilateral renal calculi. Borderline hydronephrosis. A ureteral calculus is not seen although alfa luation is limited as IV contrast was administered. . There is no evidence of diverticulitis. IUD within the uterus. No adnexal mass. IMPRESSION: Tiny bilateral nonobstructing renal calculi. Borderline hydronephrosis. Extrarenal pelves are present
--- NOTE | 2024-05-06 19:05 | ER ---
Nurse's Notes [facility] Name: Gabby Bradley Age: 48 yrs Sex: Female : 1975 Arrival Date: 05/06/2024 Time: 15:32 Bed 14 Private MD: Leonardo Nuno B Diagnosis: Upper abdominal pain, unspecified Presentation: 05/06 16:00 Chief complaint: Patient states: abd pain, started a couple days ago, upper and pain iw feels like pressure and last night the west was really bad and was vomiting , has been on wegovy for a year and interferon. Coronavirus screen: At this time, the client does not indicate any symptoms associated with coronavirus-19. Ebola Screen: No symptoms or risks identified at this time. Initial Sepsis Screen: Does the patient meet any 2 criteria? No. Patient's initial sepsis screen is negative. Does the patient have a suspected source of infection? No. Patient's initial sepsis screen is negative. Risk Assessment: Do you want to hurt yourself or someone else? Patient reports no desire to harm self or others. Onset of symptoms was May 04, 2024. 16:00 Method Of Arrival: Ambulatory iw 16:00 Acuity: ANGIE 3 iw CLOCKMAKER: 16:03 LMP N/A - Post-menopause, Not iw Historical: - Allergies: 16:02 PENICILLINS; iw 16:02 Dilaudid; iw - PMHx: 16:02 chronic fatigue; essential thrombocythemia (blood disorder); iw - PSHx: 16:02 Cholecystectomy; Appendectomy; iw - Immunization history:: Adult Immunizations not up to date. - Infectious Disease History:: Denies. - Social history:: Smoking status: Patient denies any tobacco usage or history of. Screenin:10 [facility] ED Fall Risk Assessment (Adult) History of falling in the last 3 months, me1 including since admission No falls in past 3 months (0 pts) Confusion or Disorientation No (0 pts) Intoxicated or Sedated No (0 pts) Impaired Gait No (0 pts) Mobility Assist Device Used No (0 pt) Altered Elimination No (0 pt) Score/Fall Risk Level 0 - 2 = Low Risk Maintained a safe environment, Provided non-skid footwear, Hourly rounding (assess needs \T\ fall precautionary measures) done. Abuse screen: Denies threats or abuse. Nutritional screening: No deficits noted. Tuberculosis screening: No symptoms or risk factors identified. Assessment: 17:10 General: Appears comfortable, ill, well groomed, well developed, well nourished, me1 Behavior is calm, cooperative, appropriate for age, Reports abd pain, started a couple days ago, epigastric pain feels like pressure and last night the pain was really bad and was vomiting. Pain: Complains of pain in epigastric area Pain does not radiate. Pain currently is 2 out of 10 on a pain scale. Quality of pain is described as pressure, Pain began gradually, 1 day ago. Is continuous. Neuro: Level of Consciousness is awake, alert, obeys commands, Oriented to person, place, time, situation, Appropriate for age. Cardiovascular: Patient's skin is warm and dry. Respiratory: Airway is patent Respiratory effort is even, unlabored, Respiratory pattern is regular, symmetrical. GI: Abdomen is flat, Bowel sounds present X 4 quads. Abd is soft and non tender X 4 quads. Reports nausea, vomiting. : No signs and/or symptoms were reported regarding the genitourinary system. EENT: No signs and/or symptoms were reported regarding the EENT system. Derm: Skin is intact, is healthy with good turgor, Skin is pink, warm \T\ dry. Musculoskeletal: No signs and/or symptoms reported regarding the musculoskeletal system. Vital Signs: 16:00 BP 148 / 77; Pulse 78; Resp 16; Temp 97.4; Pulse Ox 100% on R/A; Weight 55.79 kg; iw Height 5 ft. 3 in. ; Pain 5/10; 19:37 BP 144 / 57; Pulse 62; Resp 17; Temp 97.4; Pulse Ox 100% ; cp4 16:00 Body Mass Index 21.79 (55.79 kg, 160.02 cm) iw 16:00 Pain Scale: Adult iw ED Course: 15:35 Patient arrived in ED. mr 15:35 Leonardo Nuno MD is Private Physician. mr 15:39 Dena Manning FNP-C is [facility]. kb 15:39 Edilson Perkins MD is Attending Physician. kb 16:02 Triage completed. iw 16:03 Arm band placed on. iw 17:07 Patient placed in an exam room, on a stretcher. ap3 17:10 Patient has correct armband on for positive identification. Bed in low position. Call me1 light in reach. Side rails up X2. Provided Education on: POC. Verbalized understanding.. Client placed on continuous cardiac and pulse oximetry monitoring. NIBP monitoring applied. Pulse ox on. NIBP on. 17:10 No provider procedures requiring assistance completed. me1 17:19 Marisol Youngblood, RN is Primary Nurse. me1 17:39 Initial lab(s) drawn, by me, sent to lab. Urine collected: clean catch specimen, me1 cloudy. Inserted saline lock: 22 gauge in left antecubital area, using aseptic technique. 17:39 CBC with Diff Sent. me1 17:39 CMP Sent. me1 17:39 Lipase Sent. me1 17:39 Test, Urine Sent. me1 17:39 Urinalysis w/ reflexes Sent. me1 18:32 CT Abd/Pelvis - IV Contrast Only In Process Unspecified. EDOR 19:04 Edilson Perkins MD is Referral Physician. kb 19:38 intact, bleeding controlled, No redness/swelling at site. Pressure dressing applied. cp4 Administered Medications: 17:50 Drug: NS 0.9% IV 1000 ml IV at 1 bolus Per protocol; 1000 mL bolus Route: IV; Rate: 1 me1 bolus; Site: left antecubital; 17:50 Drug: Famotidine IVP 20 mg IVP once; dilute with 10 mL 0.9% NaCl; give over 2 minutes me1 Route: IVP; Site: left antecubital; 18:44 Follow up: Response: No adverse reaction me1 17:51 Drug: Ondansetron IVP 4 mg IVP once; over 2 minutes Route: IVP; Site: left antecubital; me1 18:44 Follow up: Response: No adverse reaction; Nausea is decreased me1 Medication: 17:10 VIS not applicable for this client. me1 Outcome: 19:04 Discharge ordered by . kb 19:38 Discharged to home ambulatory, cp4 19:38 Condition: stable 19:38 Discharge instructions given to patient, Instructed on discharge instructions, follow up and referral plans. Demonstrated understanding of instructions, follow-up care, 19:38 Patient left the ED. cp4 Signatures: Dispatcher [employer] EDOR Dena Manning, OSCAR BERMAN-Rosey Cherry Janee, Reg Reg mr Silvia Alvarez, RN RN iw Rosalina Saba RN RN ap3 Marisol Youngblood RN RN me1 Jazlyn Verde cp4 Corrections: (The following items were deleted from the chart) 16:03 16:02 PMHx: appendicitis; iw iw 18:39 16:00 Chief complaint: Patient states: abd pain, started a couple days ago, upper and me1 pain feels like pressure and last night the west was really bad and was vomiting , has been on wegovy for a year and interferon iw
--- NOTE | 2024-05-06 19:05 | EDPHYS ---
Physician Documentation [facility] Name: Gabby Bradley Age: 48 yrs Sex: Female : 1975 Arrival Date: 05/06/2024 Time: 15:32 Bed 14 Private MD: Leonardo Nuno B ED Physician Edilson Perkins HPI: 05/06 18:59 This 48 yrs old Female presents to ER via Ambulatory with complaints of Abdominal Pain, kb Nausea/Vomiting. 19:00 Pt is a 48 year old female who presents for upper abd pain that started a few days ago kb and got worse last night. States the pain is better now, but she wanted to get checked out just in case because she is on medications that can cause pancreatitis. . 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 - Infectious Disease History:: Denies. - Social history:: Smoking status: Patient denies any tobacco usage or history of. ROS: 18:59 Constitutional: As per HPI kb Exam: 18:59 Constitutional: This is a well developed, well nourished patient who is awake, alert, kb and in no acute distress. Head/Face: Normocephalic, atraumatic. ENT: Moist Mucous membranes Cardiovascular: Regular rate Respiratory: Respirations even and unlabored. No increased work of breathing. Talking in full sentences Skin: Warm, dry with normal turgor. Normal color. MS/ Extremity: Pulses equal, no cyanosis. Neurovascular intact. Full, normal range of motion. Neuro: Awake and alert, GCS 15, oriented to person, place, time, and situation. Moves all extremities. Normal gait. 18:59 Abdomen/GI: Inspection: abdomen appears normal, Bowel sounds: normal, Palpation: soft, in all quadrants, mild abdominal tenderness, in the epigastric area, Vital Signs: 16:00 BP 148 / 77; Pulse 78; Resp 16; Temp 97.4; Pulse Ox 100% on R/A; Weight 55.79 kg; iw Height 5 ft. 3 in. ; Pain 5/10; 19:37 BP 144 / 57; Pulse 62; Resp 17; Temp 97.4; Pulse Ox 100% ; cp4 16:00 Body Mass Index 21.79 (55.79 kg, 160.02 cm) iw 16:00 Pain Scale: Adult iw MDM: 15:39 Patient medically screened. kb 18:59 Differential diagnosis: gastroesophageal reflux disease, non-specific abd pain, kb pancreatitis, Peptic Ulcer Disease. Data reviewed: vital signs, nurses notes. 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 05/06 16:09 Order name: CBC with Diff; Complete Time: 17:57 05/06 16:09 Order name: CMP; Complete Time: 18:07 05/06 16:09 Order name: Lipase; Complete Time: 18:07 05/06 16:09 Order name: Test, Urine; Complete Time: 18:07 05/06 16:09 Order name: Urinalysis w/ reflexes; Complete Time: 18:07 05/06 16:09 Order name: CT Abd/Pelvis - IV Contrast Only; Complete Time: 18:58 05/06 16:09 Order name: IV Saline Lock; Complete Time: 17:39 05/06 16:09 Order name: Labs collected and sent; Complete Time: 17:39 Administered Medications: 17:50 Drug: NS 0.9% IV 1000 ml IV at 1 bolus Per protocol; 1000 mL bolus Route: IV; Rate: 1 me1 bolus; Site: left antecubital; 17:50 Drug: Famotidine IVP 20 mg IVP once; dilute with 10 mL 0.9% NaCl; give over 2 minutes me1 Route: IVP; Site: left antecubital; 18:44 Follow up: Response: No adverse reaction me1 17:51 Drug: Ondansetron IVP 4 mg IVP once; over 2 minutes Route: IVP; Site: left antecubital; me1 18:44 Follow up: Response: No adverse reaction; Nausea is decreased me1 Disposition Summary: 05/06/24 19:04 Discharge Ordered Notes: Location: Home kb Condition: Stable kb Diagnosis - Upper abdominal pain, unspecified kb Followup: kb - With: Emergency Department - When: As needed - Reason: Worsening of condition Followup: kb - With: Private Physician - When: 2 - 3 days - Reason: Recheck today's complaints, Continuance of care, Re-evaluation by your physician Discharge Instructions: - Discharge Summary Sheet kb - Abdominal Pain, Adult, [id number] kb Forms: - Medication Reconciliation Form kb - Antibiotic Education kb - Prescription Opioid Use kb - Patient Portal Instructions kb - Leadership Thank You Letter kb Addendum: 05/09/2024 15:51 Co-signature as Attending Physician, Edilson Perkins MD I agree with the assessment and c atkinson plan of care. Signatures: Dispatcher [employer] EDDena Kilgore, PROJECT FACILITATOR-C PROJECT FACILITATOR-Edilson Guzman MD MD cha Williams, Irene, YAKELIN RN Marisol Youngblood RN RN me1 Corrections: (The following items were deleted from the chart) 05/06 16:03 16:02 PMHx: appendicitis; iw iw 16:09 16:09 CBC+H.LAB.BRZ ordered. EDMS EDMS 16:09 16:09 COMPREHENSIVE METABOLIC PANEL+C.LAB.BRZ ordered. EDMS EDMS 16:09 16:09 LIPASE+C.LAB.BRZ ordered. EDMS EDMS 16:09 16:09 Test, Urine+UC.LAB.BRZ ordered. EDMS EDMS 16:09 16:09 Urinalysis+U.LAB.BRZ ordered. EDMS EDMS
[2024-05-06 19:55] VITALS: TEMP 97.4; O2SAT 100
[2024-05-06 19:57] VITALS: BP 144/57
== END 2024-05-06 19:38 | disposition home or self-care (01) ==
LOC: ER 15:32
DX: R10.13 Epigastric pain (principal); R11.2 Nausea with vomiting, unspecified
CPT/HCPCS: 85025; 81001; 36415; 81025; 83690; 80053; 74177; 96375; 96374; 99284; Q9967; J2405; J7030